=== PATIENT | male | born 1950 | race Caucasian/White ===

== ENCOUNTER → 2016-09-24 | Outpatient (CLI) | payer OTHER | LOC: BHFA 11:15 | PROVIDERS: ATTEND Internal Medicine Interventional Cardiology | DX: I25.10 Atherosclerotic heart disease of native coronary artery without angina pectoris (principal); E78.5 Hyperlipidemia, unspecified ==

== ENCOUNTER 2017-02-14 10:17 | Emergency (ER) | payer OTHER ==
[2017-02-14 10:20] VITALS: RESP 18; TEMP 97.5
--- NOTE | 2017-02-14 10:28 | EDPHY ---
H & P Stated Complaint: 2 hr cp/tightness Time Seen by Provider: 02/14/17 10:22 HPI/ROS: CHIEF COMPLAINT: Chest pressure HISTORY OF PRESENT ILLNESS: The patient presents to the ED after he experienced a mild chest pressure while riding his bike 2 hours ago. The patient went home and rested. His symptoms improved but did not shilpi. The patient denies any complaints of fever, cough or congestion. The patient has no prior history of anginal symptoms. The patient reports his last stress test was unremarkable. He denies any additional acute complaints. Symptoms are currently 07/30. The patient does report a small component of pleuritic chest pain. The patient denies any history of asymmetric calf pain or swelling. The patient did have a recent long plane flight to [place] in January. REVIEW OF SYSTEMS: A comprehensive 10 point review of systems is otherwise negative aside from elements mentioned in the history of present illness. Source: Patient Exam Limitations: No limitations - Personal History Current Tetanus/Diphtheria Vaccine: Yes - Medical/Surgical History Hx Asthma: No Hx Chronic Respiratory Disease: No Hx Diabetes: No Hx Cardiac Disease: Yes Hx Renal Disease: No Hx Cirrhosis: No Hx Alcoholism: No Hx HIV/AIDS: No Hx Splenectomy or Spleen Trauma: No Other PMH: cardiac stents - Social History Smoking Status: Never smoked - Physical Exam Exam: General Appearance: Alert, no distress Eyes: Pupils equal and round no pallor or injection ENT, Mouth: Mucous membranes moist Respiratory: There are no retractions, lungs are clear to auscultation Cardiovascular: Regular rate and rhythm Gastrointestinal: Abdomen is soft and nontender, no masses, bowel sounds normal Neurological: A&O, normal motor function, normal sensory exam, normal cranial nerves Skin: Warm and dry, no rashes Musculoskeletal: Neck is supple nontender Extremities: symmetrical, full range of motion Constitutional: Initial Vital Signs Temperature (C) 36.4 C 02/14/17 10:18 Heart Rate 59 L 02/14/17 10:18 Respiratory Rate 18 02/14/17 10:18 Blood Pressure 125/57 H 02/14/17 10:18 O2 Sat (%) 98 02/14/17 10:18 O2 Delivery Mode Room Air Allergies/Adverse Reactions: No Known Allergies Allergy (Unverified 02/14/17 10:18) Home Medications: Medication Instructions Recorded ARIPIPRAZOLE 02/14/17 Aspirin 81mg (*) 02/14/17 Lisinopril 02/14/17 Metoprolol Succinate 02/14/17 QUEtiapine FUMARATE 02/14/17 Rosuvastatin Calcium 02/14/17 Tamsulosin HCl 02/14/17 Medical Decision Making - Diagnostics EKG Interpretation: EKG: Complete interpretation has been separately recorded in the [facility] archive. Summary impression: Sinus rhythm, mild ST segment elevation noted in the anterolateral leads. I reviewed the patient's prior EKG and is unchanged from that study. Imaging Results: Imaging Impressions Chest X-Ray 02/14/17 11:03 Impression: Suspect airways disease. Chest/Thorax CTA 02/14/17 11:35 Impression: 1. Small volume subsegmental pulmonary emboli to both lower lobes. There is associated small pulmonary infarct suspected left lower lobe laterally at the costophrenic angle. 2. Coronary artery disease noted with stents in place. Findings discussed with Sahil Avila at 12:48 hour, 02/14/2017. ED Course/Re-evaluation: The patient presents to the ED with complaints of mild chest pressure which began while riding his bike. The patient was noted to have some nonspecific changes on his EKG. My initial efforts for focused around obtain a copy of his prior EKG which fortunately demonstrates no dynamic changes. The patient did have a slightly elevated D-dimer. The patient's initial troponin was normal. Patient was taken for CT pulmonary angiogram which demonstrates bilateral subsegmental pulmonary emboli. The patient will be admitted to the hospital for further management can treatment of this condition. Consultation was made with the hospitalist service. The patient will be admitted by Dr. Kramer. The patient remained hemodynamically stable without evidence of arrhythmia or compromise in the emergency department. Differential Diagnosis: Differential diagnosis considered includes pulmonary embolism, acute coronary syndrome, costochondritis, pneumothorax, pneumonia, arrhythmia - Data Points Laboratory Results: Laboratory Results 02/14/17 10:35 02/14/17 10:35 02/14/17 02/14/17 02/14/17 11:04 10:35 10:35 WBC 7.37 10^3/uL 10^3/uL (3.80-9.50) RBC 4.62 10^6/uL 10^6/uL (4.40-6.38) Hgb 13.9 g/dL g/dL (13.7-17.5) Hct 39.7 % L % (40.0-51.0) MCV 85.9 fL fL (81.5-99.8) MCH 30.1 pg pg (27.9-34.1) MCHC 35.0 g/dL g/dL (32.4-36.7) RDW 12.7 % % (11.5-15.2) Plt Count 163 10^3/uL 10^3/uL (150-400) MPV 10.6 fL fL (8.7-11.7) Neut % (Auto) 79.8 % H % (39.3-74.2) Lymph % (Auto) 11.7 % L % (15.0-45.0) [place] % (Auto) 7.3 % % (4.5-13.0) Eos % (Auto) 0.3 % L % (0.6-7.6) Baso % (Auto) 0.5 % % (0.3-1.7) Nucleat RBC Rel Count 0.0 % % (0.0-0.2) Absolute Neuts (auto) 5.88 10^3/uL 10^3/uL (1.70-6.50) Absolute Lymphs (auto) 0.86 10^3/uL L 10^3/uL (1.00-3.00) Absolute Monos (auto) 0.54 10^3/uL 10^3/uL (0.30-0.80) Absolute Eos (auto) 0.02 10^3/uL L 10^3/uL (0.03-0.40) Absolute Basos (auto) 0.04 10^3/uL 10^3/uL (0.02-0.10) Absolute Nucleated RBC 0.00 10^3/uL 10^3/uL (0-0.01) Immature Gran % 0.4 % % (0.0-1.1) Immature Gran # 0.03 10^3/uL 10^3/uL (0.00-0.10) D-Dimer 0.65 ug/mLFEU H ug/mLFEU (0.00-0.50) Sodium 142 mEq/L mEq/L (134-144) Potassium 4.2 mEq/L mEq/L (3.5-5.2) Chloride 105 mEq/L mEq/L (97-110) Carbon Dioxide 23 mEq/l mEq/l (22-31) Anion Gap 14 mEq/L mEq/L (8-16) BUN 16 mg/dL mg/dL (7-23) Creatinine 0.9 mg/dL mg/dL (0.7-1.3) Estimated GFR > 60 Glucose 103 mg/dL H mg/dL (70-100) Calcium 9.1 mg/dL mg/dL (8.5-10.4) Troponin I 0.013 ng/mL ng/mL (0-0.034) Medications Given: Discontinued Medications Aspirin (Aspirin) 324 mg PO EDNOW ONE Stop: 02/14/17 11:04 Last Admin: 02/14/17 11:13 Dose: 324 mg Nitroglycerin (Nitrostat) 0.4 mg SL Q5M PRN PRN Reason: Chest Pain Stop: 02/14/17 11:14 Last Admin: 02/14/17 11:28 Dose: 0.4 mg Departure - Departure Disposition: [facility] Inpatient Acute Clinical Impression: Pulmonary embolism Qualifiers: Pulmonary embolism type: other Chronicity: acute Acute cor pulmonale presence: without acute cor pulmonale Qualified Code(s): I26.99 - Other pulmonary embolism without acute cor pulmonale Condition: Good Referrals: Lilliam Melendez MD [Primary Care Provider] - As per Instructions
--- NOTE | 2017-02-14 10:31 | CPEKG ---
Heart Rate: 61 RR Interval: 984 P-R Interval: 188 QRSD Interval: 90 QT Interval: 400 QTC Interval: 403 P Sperry: 65 QRS Sperry: 22 T Wave Sperry: 32 EKG Severity - BORDERLINE ECG - EKG Impression: SINUS RHYTHM EKG Impression: BORDERLINE ST ELEVATION, ANTEROLATERAL LEADS Electronically Signed By: Sahil Avila 14-Feb-2017 10:58:34
[2017-02-14] MEDS ORDERED: ASPIRIN 81 MG CHEWABLE TAB PO ONE (11:03)
[2017-02-14 11:11] LABS: % IMMATURE GRANULYOCYTES 0.4 % (0.0-1.1); ABSOLUTE IMMATURE GRANULOCYTES 0.03 10^3/uL (0.00-0.10); ADD DIFF? NO; ADD MORPH? NO; ADD SCAN? NO; ATYPICAL LYMPHOCYTE FLAG 10 (0-99); FRAGMENT RBC FLAG 0 (0-99); HEMATOCRIT 39.7 % (40.0-51.0); HEMOGLOBIN 13.9 g/dL (13.7-17.5); LEFT SHIFT FLG 0 (0-99); LIPEMIA HEMOLYSIS FLAG 90 (0-99); MEAN CELL HEMOGLOBIN 30.1 pg (27.9-34.1); MEAN CELL VOLUME 85.9 fL (81.5-99.8); MEAN PLATELET VOLUME 10.6 fL (8.7-11.7); PLATELET CLUMPS FLAG 10 (0-99); PLATELET COUNT 163 10^3/uL (150-400); RED BLOOD CELL COUNT 4.62 10^6/uL (4.40-6.38); RED CELL DISTRIBUTION WIDTH 12.7 % (11.5-15.2)
[2017-02-14] MEDS: NITROGLYCERIN 0.4 MG BTL SL PRN ×3 (11:14→11:28)
[2017-02-14 11:22] LABS: ANION GAP 14 mEq/L (8-16); CALCIUM 9.1 mg/dL (8.5-10.4); CARBON DIOXIDE 23 mEq/l (22-31); CHLORIDE 105 mEq/L (97-110); CREATININE 0.9 mg/dL (0.7-1.3); GLOMERULAR FILTRATION RATE > 60; GLUCOSE 103 mg/dL (70-100); POTASSIUM 4.2 mEq/L (3.5-5.2); SODIUM 142 mEq/L (134-144)
[2017-02-14 11:46] LABS: TROPONIN I 0.013 ng/mL (0-0.034)
--- NOTE | 2017-02-14 12:06 | ECHO ---
[id number] + + [id number] : : [place] [id number] : : [phone] + Adult Echocardiographic Report + -------+ :Name: SAHIL JIMENEZ JStudy Date: 02/14/2017 11:33 AM BP: 123/64 mm Hg : : Hospital Admission Number: [id number] Locat ion: ER: :: 1950 Gender: Male Height: 66 in : :Age: 66 yrs Race: WH Weight: 167 l b : :Reason For Study: chest pain with exercise : : BSA: 1.9 mete rs2 : :History: stents : + -------+ MMode/2D Measurements \T\ Calculations IVSd: 1.2 cm RVDd: 3.4 cm FS: 30.9 % Ao root diam: LVPWd: 0.93 cm LVIDd: 4.3 cm EDV(Teich): 3.3 cm LVIDs: 3.0 cm 83.1 ml ESV(Teich): 34.2 ml EF(Teich): 58.9 % LVLd ap4: 8.3 cm SV(MOD-sp4): EDV(MOD-sp4): 90.0 ml 127.0 ml LVLs ap4: 7.0 cm ESV(MOD-sp4): 37.0 ml EF(MOD-sp4): 70.9 % Normal Measurement Values: + + :LVIDd (3.5-5.7cm) IVSd (0.6-1.1cm) LVPWd (0.6-1.1cm) Aortic Root (2.0-3.7cm)Left Atrium (1.5-4.0cm): :LV Vol(d) (76-115ml) LV Vol(s) (29-48ml) Ejec Fraction (50-65%)PV René (0.6- 1.2m/s) TV René (0.4-1.0m/s) : :MV E René (0.8-1.0m/s)MV A René (0.3-1.0m/s)LVOT René (0.7-1.2m/s) Asc Ao René ( 0.9-1.8m/s) : + + Doppler Measurements \T\ Calculations MV E max rené: Ao V2 max: LV V1 max: PA V2 max: 51.3 cm/sec 132.0 cm/sec 120.0 cm/sec 113.0 cm/sec MV A max rené: Ao max PG: LV V1 max PG: PA max P.4 cm/sec 7.0 mmHg 5.8 mmHg 5.1 mmHg MV E/A: 0.63 MV dec time: 0.44 sec TR max rené: 212.0 cm/sec TR max P.0 mmHg RAP systole: 5.0 mmHg RVSP(TR): 23.0 mmHg Left Ventricle The left ventricle is normal in size and function. There is normal left ventricular wall thickness. Ejection Fraction = 70%. No regional wall motion abnormalities noted. Right Ventricle The right ventricle is normal in size and function. Atria The left atrial size is normal. Right atrial size is normal. Mitral Valve The mitral valve is normal in structure and function. There is no mitral valve stenosis. There is trace to mild mitral regurgitation. Tricuspid Valve The tricuspid valve is normal in structure and function. There is no tricuspid stenosis. There is trace to mild tricuspid regurgitation. Right ventricular systolic pressure is 23mmHg. Aortic Valve The aortic valve is trileaflet. There is no aortic stenosis. There is no aortic insufficiency. Pulmonic Valve The pulmonic valve is normal in structure and function. Trace pulmonic valvular regurgitation. Great Vessels The aortic root is normal size. Pericardium/Pleural There is no pericardial effusion. Conclusion A two-dimensional transthoracic echocardiogram with M-mode and Doppler was performed. The left ventricle is normal in size and function. Ejection Fraction = 70%. No regional variation in LV contractility. Normal appearing valvular structures. There is trace to mild mitral regurgitation. There is trace to mild tricuspid regurgitation. Right ventricular systolic pressure is 23mmHg. Trace pulmonic valvular regurgitation. Final Reading Physician: Cisco Elizabeth signed on 02/14/2017 12:05 PM Ordering Physician: Sahil Avila Performed By: Maryjo Maynard
[2017-02-14] MEDS ORDERED: IOPAMIDOL (ISOVUE 370) 100 ML BTL IV ONE (12:13)
[2017-02-14] MEDS ORDERED: ENOXAPARIN 80 MG/0.8 ML SYR SC ONE (13:04)
[2017-02-14 14:10] VITALS: O2SAT 96
[2017-02-14] MEDS ORDERED: ONDANSETRON 4 MG/2 ML VIAL IVP PRN (14:56)
[2017-02-14] MEDS ORDERED: ACETAMINOPHEN 325 MG TAB PO PRN (14:56)
[2017-02-14] MEDS ORDERED: ONDANSETRON DISINTEGRATING 4 MG TAB PO PRN (14:56)
--- NOTE | 2017-02-14 15:35 | GHP ---
[f rep st] HISTORY AND PHYSICAL DATE OF ADMISSION: 02/14/2017 CHIEF COMPLAINT: Pulmonary embolism. HISTORY OF PRESENT ILLNESS: The patient is a 66-year-old male with history of coronary disease stat us post stents, presenting with right-sided chest pressure while riding his bike 2 hours ago. He sa id it was pressure-like, did not radiate and no associated diaphoresis or radiation. Did have mild shortness of breath. His symptoms improved, but did not shilpi. He denies fevers, chills or cough. He does report having some shortness of breath last week when hiking [employer]. Denies any lowe r extremity edema or pain. The chest pressure does worsen with deep inspiration. He did travel rec ently to [place] in late December. REVIEW OF SYSTEMS: I completed a 10-point review of systems, negative except as noted in HPI. PAST MEDICAL HISTORY: Coronary artery disease status post stents. PAST SURGICAL HISTORY: None. FAMILY HISTORY: Father with coronary artery disease. SOCIAL HISTORY: No tobacco or illicits. Lives in [place]. He is very active and exercises and bik es. MEDICATIONS: See home medication reconciliation. ALLERGIES: None. PHYSICAL EXAMINATION: VITAL SIGNS: Temperature 36.4, blood pressure 135/57, heart rate in the 50s, respirations 18, 98% on room air. GENERAL: Well-appearing male sitting up in bed, no acute distre ss. HEENT: PERRLA. EOMI. Oropharynx clear. CV: Regular rate and rhythm. No murmurs, gallops, or rubs. LUNGS: Clear to auscultation bilaterally. ABDOMEN: Soft, nontender, nondistended. Posi tive bowel sounds. : No suprapubic tenderness. MUSCULOSKELETAL: 5/5 upper and lower extremity strength. No lower extremity swelling or pain over the calves. NEURO: 2 through 12 intact. PSYCH : Alert and oriented x3. LABORATORY DATA: D-dimer 0.65, sodium 142, potassium 4.2, chloride 105, carbon dioxide 23, creatini ne 0.9 glucose 103, calcium 9.1. Troponin 0.013. WBC 7.3, hemoglobin 13, hematocrit 39, platelets 167. IMAGIN. Chest x-ray, personally reviewed by me: Airway disease. 2. CTA: Small volume subsegmental pulmonary emboli to both lower lobes. There is associated small pulmonary infarct in the left lower lobe at the costophrenic angle. Coronary artery disease noted with stents in place. 3. EKG, personally reviewed by me: Normal sinus rhythm. LVH. 4. Echocardiogram: Normal LV function with an EF of 70%. Normal-appearing valves. There is mild MR and trace TR with RVSP 23 mmHg. HOSPITAL COURSE BY PROBLEM: 1. Acute pulmonary embolism: Suspect provoked with recent long plane ride. He is hemodynamically stable, not requiring oxygen, with good blood pressure. Echocardiogram was negative for right heart strain. Negative troponin. Will evaluate with lower extremity Dopplers. Patient and I had a long discussion about anticoagulation options and he has opted for Coumadin, thus will require bridge fo r at least 7 days until INR is 2. 2. Atypical chest pain secondary to pleurisy with PE. Recommend NSAIDs. 3. Diet regular. 4. Deep venous thrombosis prophylaxis on Lovenox and Coumadin. DISPOSITION: Patient warrants observation admission, given acute PE, requiring telemetry and ultras ound of lower extremities. /[id number]/MODL
[2017-02-14 16:28] LABS: INR 0.99 (0.83-1.16)
[2017-02-14 16:29] LABS: APTT 26.8 SEC (23.0-38.0)
[2017-02-14] MEDS ORDERED: WARFARIN SODIUM 5 MG TAB ONE (16:39)
[2017-02-14 17:00] VITALS: BP 129/70; PULSE 50
--- NOTE | 2017-02-14 17:20 | GDS ---
[f rep st] DISCHARGE SUMMARY CHIEF COMPLAINT: Pulmonary embolism. HISTORY OF PRESENTING ILLNESS: Please see H and P dated today for full HPI. HOSPITAL COURSE BY PROBLEM: 1. Acute subsegmental PE: Suspect provoked in the setting of recent long travel. He is hemodynamically stable. Negative echocardiogram as well as lower extremity DVTs. His PESI score is 76, which is low risk for mortality, morbidity. The patient opted to be treated with Coumadin, thus discharge on a Lovenox bridge.Follow up with his PCP on Friday for an INR. I explained at length the risk of anticoagulation and strict return precautions including chest pain, shortness of breath, dizziness or lightheadedness. Did offer the patient for observation stay overnight but he declined. He understands the risks, including hypotension, dizziness, . 2. Atypical chest pain secondary to pleurisy. NSAIDs p.r.n. DISPOSITION: Patient is stable for discharge. NEW MEDICATIONS: Lovenox and Coumadin. FOLLOWUP: 1. Dr. Lilliam Melendez, his PCP. 2. INR Friday. /[id number]/MODL MTDD
[2017-02-14] MEDS ORDERED: TAMSULOSIN HCL 0.4 MG CAP PO SCH (21:00)
[2017-02-14] MEDS ORDERED: QUEtiapine FUMARATE 25 MG TAB PO SCH (21:00)
[2017-02-14] MEDS ORDERED: METOPROLOL SUCCINATE XR 25 MG TAB PO SCH (21:00)
[2017-02-14] MEDS ORDERED: ATORVASTATIN CALCIUM 20 MG TAB PO SCH (21:00)
[2017-02-14] MEDS ORDERED: ARIPiprazole 2 MG TAB PO SCH (21:00)
[2017-02-14] MEDS ORDERED: ASPIRIN 81 MG CHEWABLE TAB PO SCH (21:00)
[2017-02-14] MEDS ORDERED: LISINOPRIL 5 MG TAB PO SCH (21:00)
== END 2017-02-14 17:33 | disposition home or self-care (01) ==
LOC: UNDOADMIN 13:13
DX: I26.99 Other pulmonary embolism without acute cor pulmonale (principal)
CPT/HCPCS: J1650; Q9967

== ENCOUNTER 2017-11-09 06:18 | Observation (INO) | payer OTHER ==
[2017-11-09] MEDS ORDERED: ASPIRIN 81 MG CHEWABLE TAB ONE (06:36)
--- NOTE | 2017-11-09 06:36 | CPEKG ---
Heart Rate: 50 RR Interval: 1200 P-R Interval: 192 QRSD Interval: 96 QT Interval: 452 QTC Interval: 413 P Galax: 69 QRS Galax: 37 T Wave Galax: 39 EKG Severity - BORDERLINE ECG - EKG Impression: SINUS RHYTHM EKG Impression: BORDERLINE ST ELEVATION, ANTERIOR LEADS EKG Impression: TALL T, CONSIDER METABOLIC/ISCHEMIC ABNRM Electronically Signed By: Charbel Tracy 09-Nov-2017 06:44:30
[2017-11-09] MEDS ORDERED: ASPIRIN 81 MG CHEWABLE TAB PO ONE (06:38)
--- NOTE | 2017-11-09 06:44 | EDPHY ---
H & P Stated Complaint: mid chest pain that started yesterday - Personal History Current Tetanus/Diphtheria Vaccine: Yes Current Tetanus Diphtheria and Acellular Pertussis (TDAP): Yes - Medical/Surgical History Hx Asthma: No Hx Chronic Respiratory Disease: No Hx Diabetes: No Hx Cardiac Disease: Yes Hx Renal Disease: No Hx Cirrhosis: No Hx Alcoholism: No Hx HIV/AIDS: No Hx Splenectomy or Spleen Trauma: No Other PMH: cardiac stents - Social History Smoking Status: Never smoked Time Seen by Provider: 11/09/17 06:29 HPI/ROS: Chief Complaint: Chest pain HPI: 67-year-old male with a history of coronary artery disease status post stenting in the past. He is a patient Dr. Shaw. He also has a history of a PE last January which was precipitated by a long international plane flight. He completed a course of anticoagulation. He is presenting today with waxing and waning substernal chest pain since yesterday. At worst is a 3/10. It is gone away when he went to bed but he woke at 3 o'clock this morning with this substernal pain. Is not radiating. Is described as a tightness. There are no aggravating or alleviating factors. Is not pleuritic. It does not feel like his prior PEs. No recent periods of immobility. No leg pain or swelling. No shortness of breath. ROS: 10 point Review of Systems is negative except as noted in the HPI. PMH: Coronary artery disease, PE, hyperlipidemia, BPH Social History: No smoking, no alcohol, no recreational drug use Family History: non-contributory Physical Exam: Gen: Awake, Alert, No Distress HEENT: Nose: no rhinorrhea Eyes: PERRLA, EOMI Mouth: Moist mucosa Neck: Supple, no JVD Chest: nontender, lungs clear to auscultation Heart: S1, S2 normal, no murmur Abd: Soft, non-tender, no guarding Back: no CVA tenderness, no midline tenderness Ext: no edema, non-tender Skin: no rash Neuro: CN II-XII intact, Sensation grossly intact, Strength 5/5 in bilateral upper and lower extremities (Charbel Tracy) Constitutional: Initial Vital Signs Temperature (C) 36.3 C 11/09/17 06:21 Heart Rate 50 L 04/22/18 06:21 Respiratory Rate 16 11/09/17 06:21 Blood Pressure 118/36 L 11/09/17 06:21 O2 Sat (%) 96 11/09/17 06:21 O2 Delivery Mode Room Air Allergies/Adverse Reactions: No Known Allergies Allergy (Verified 11/09/17 06:25) Home Medications: Medication Instructions Recorded Lisinopril [Zestril 5 mg (*)] 5 mg PO HS 02/14/17 Metoprolol Succinate Xr [Toprol Xl 25 mg PO HS 02/14/17 25 mg (*)] QUEtiapine FUMARATE [Seroquel 25 25 mg PO HS 02/14/17 mg (*)] Tamsulosin HCl [Flomax 0.4 MG (*)] 0.4 mg PO HS 02/14/17 Medical Decision Making - Diagnostics EKG Interpretation: ECG time 6:34 a.m., sinus rhythm with a rate of 50, normal axis, normal intervals, there is borderline ST elevation in the anterior leads concerning for ischemia, however these are unchanged compared to an ECG from the 14 February 2017. (Charbel Tracy) ED Course/Re-evaluation: 67-year-old male with a history of coronary disease and PE in the past is presenting with moderate waxing waning substernal chest pain since yesterday afternoon. ECG is unchanged from prior. Will send troponin, D-dimer, chest x- ray. He has received aspirin in the emergency department. [address] Medrano pending patient's laboratory results and chest x-ray result. (Charbel Tracy) This patient was turned over to me at shift change. After his laboratory studies returned I had a long discussion with the patient and his . His D- dimer is negative. This gives him a 96% negative predictive value. Additionally, his pain is dull and not sharp, it is not pleuritic, he is not tachypneic and he is not tachycardic. His prior pulmonary embolus was also provoked. He does not require angio of his chest. However, this patient had a stent placed approximately 2007 after a very high calcium score and some exercise intolerance. He never had any claudia chest pain. He seen Dr. Shaw on a yearly basis since 2007 however he denies ever having a new study, a regular treadmill, or repeat calcium score. I do not have a good sense of whether not his disease has progressed or not. Additionally, he has had intermittent chest pressure throughout the night and yesterday while at rest. I am admitting this patient hospital for further rule out and provocative testing. Dr. Rodriguez accepts (Kali Medrano) - Data Points Laboratory Results: Laboratory Results 11/09/17 06:35 11/09/17 06:35 11/09/17 11/09/17 11/09/17 06:35 06:35 06:35 WBC 4.71 10^3/uL 10^3/uL (3.80-9.50) RBC 4.81 10^6/uL 10^6/uL (4.40-6.38) Hgb 14.4 g/dL g/dL (13.7-17.5) Hct 42.6 % % (40.0-51.0) MCV 88.6 fL fL (81.5-99.8) MCH 29.9 pg pg (27.9-34.1) MCHC 33.8 g/dL g/dL (32.4-36.7) RDW 12.9 % % (11.5-15.2) Plt Count 143 10^3/uL L 10^3/uL (150-400) MPV 10.3 fL fL (8.7-11.7) Neut % (Auto) 44.1 % % (39.3-74.2) Lymph % (Auto) 40.1 % % (15.0-45.0) [place] % (Auto) 11.7 % % (4.5-13.0) Eos % (Auto) 2.8 % % (0.6-7.6) Baso % (Auto) 1.3 % % (0.3-1.7) Nucleat RBC Rel Count 0.0 % % (0.0-0.2) Absolute Neuts (auto) 2.08 10^3/uL 10^3/uL (1.70-6.50) Absolute Lymphs (auto) 1.89 10^3/uL 10^3/uL (1.00-3.00) Absolute Monos (auto) 0.55 10^3/uL 10^3/uL (0.30-0.80) Absolute Eos (auto) 0.13 10^3/uL 10^3/uL (0.03-0.40) Absolute Basos (auto) 0.06 10^3/uL 10^3/uL (0.02-0.10) Absolute Nucleated RBC 0.00 10^3/uL 10^3/uL (0-0.01) Immature Gran % 0.0 % % (0.0-1.1) Immature Gran # 0.00 10^3/uL 10^3/uL (0.00-0.10) D-Dimer 0.37 ug/mLFEU ug/mLFEU (0.00-0.50) Sodium 144 mEq/L mEq/L (135-145) Potassium 4.2 mEq/L mEq/L (3.5-5.2) Chloride 107 mEq/L mEq/L (97-110) Carbon Dioxide 24 mEq/l mEq/l (22-31) Anion Gap 13 mEq/L mEq/L (8-16) BUN 18 mg/dL mg/dL (7-23) Creatinine 0.7 mg/dL mg/dL (0.7-1.3) Estimated GFR > 60 Glucose 91 mg/dL mg/dL (70-100) Calcium 8.6 mg/dL mg/dL (8.5-10.4) Troponin I < 0.012 ng/mL ng/mL (0.000-0.034) Medications Given: Discontinued Medications Aspirin (Aspirin) 324 mg PO EDNOW ONE Stop: 11/09/17 06:39 Last Admin: 18 06:39 Dose: 324 mg Departure - Departure Disposition: [facility] Inpatient Acute Clinical Impression: Acute coronary syndrome Condition: Fair Referrals: Lilliam Melendez MD [Primary Care Provider] - As per Instructions
[2017-11-09 06:45] LABS: PLATELET COUNT 143 10^3/uL (150-400)
[2017-11-09] MEDS ORDERED: ONDANSETRON 4 MG/2 ML VIAL IVP PRN (08:23)
[2017-11-09] MEDS ORDERED: ACETAMINOPHEN 325 MG TAB PO PRN (08:23)
[2017-11-09] MEDS ORDERED: ONDANSETRON DISINTEGRATING 4 MG TAB PO PRN (08:23)
[2017-11-09] MEDS ORDERED: ENOXAPARIN 40 MG/0.4 ML SYR SC SCH (09:00)
--- NOTE | 2017-11-09 10:52 | GHP ---
[f rep st] HISTORY AND PHYSICAL DATE OF ADMISSION: 11/09/2017 CHIEF COMPLAINT: Chest pressure. PRIMARY INFORMATION ASSURANCE MANAGER: Dr. Shaw. HISTORY OF PRESENT ILLNESS: A 67-year-old male with history of subsegmental PE in January 2017, coronary artery disease with stent 2007 and hyperlipidemia, presenting with chest pressure. He was sitting at work yesterday, greeting people and noticed some substernal chest pressure without associated symptoms, including shortness of breath, nausea, vomiting, diaphoresis or radiation. He did not pay much attention to it, so cannot provide how long it lasted. He went on through his day without any issues, went to bed and awoke this morning at 3 o'clock with a similar pressure. It is now resolved. Denies any lower extremity edema, PND, or pillow orthopnea. He is an avid custodial supervisor; ran 5 miles at 8-minute pace without any chest pain or shortness of breath. Also, biked 17 miles on without any symptoms. No fevers, chills, or sweats. No cough. Patient was asymptomatic prior to his previous stenting. Cath was based on a high calcium score on CT. REVIEW OF SYSTEMS: I completed a 10-point review of systems. Negative except as noted in HPI. PAST MEDICAL HISTORY: 1. Subsegmental PE 02/03, completed 6 months of Coumadin. 2. Coronary artery disease, stent 2007. 3. Hyperlipidemia. 4. Depression. 5. Echocardiogram 02/03: EF 70%, RVSP is 23 mmHg. FAMILY HISTORY: Maternal grandfather with a heart attack in his 60s. SOCIAL HISTORY: Lives in [place], is , has 2 kids. Smoked 5 years, tobacco in his 20s. No alcohol or illicits. PAST SURGICAL HISTORY: Cardiac stent. HOME MEDICATIONS: Toprol 25 mg q.h.s., Zestril 5 mg q.h.s., Seroquel 25 q.h.s. , Crestor 20, Flomax 0.4 mg. ALLERGIES: None. PHYSICAL EXAMINATION: VITAL SIGNS: Temperature 36.2, blood pressure 128/73, heart rate is in the 40s to 50s, respirations 16, 98% on room air. GENERAL: Well-appearing male sitting up in bed, no acute distress, smiling. HEENT: PERRLA. EOMI. Oropharynx clear. CV: Bradycardic, regular. No murmurs, gallops, or rubs. No lower extremity edema. LUNGS: Clear. No crackles or wheezing. GI: Soft, nontender, nondistended. Positive bowel sounds. : No Yang. MUSCULOSKELETAL: 5/5 upper and lower extremity strength. NEUROLOGIC: 2 through 12 intact. PSYCH: Alert and oriented x3. LABORATORY DATA: WBC 4, hemoglobin 14, hematocrit 42, platelets 143. D-dimer 0.37. Sodium 144, potassium 4.2, chloride 107, carbon dioxide 24, creatinine 0.7, glucose 91, calcium 8.6. Troponin less than 0.012. Chest x-ray personally reviewed by me, hyperexpanded, no effusion or opacity. EKG: Normal sinus rhythm, bradycardic, ST-elevation anterior leads. ASSESSMENT/PLAN: 1. Atypical chest pressure: Differential includes acute coronary syndrome, pulmonary embolism, gastroesophageal reflux disease, musculoskeletal. Dimer is negative. The initial troponin negative. EKG shows ST elevation anterior leads , similar to prior, 2017. We will repeat troponin. I am not inclined to check a cardiac stress at this time as patient is asymptomatic with strenuous exercise. He can follow up with Dr. Shaw as an outpatient. 2. Hyperlipidemia: Continue statin. 3. History of pulmonary embolism: Completed 6 months of Coumadin. 4. Diet: Regular. 5. DVT prophylaxis, ambulatory. DISPOSITION: Patient warrants observation admission given chest pressure warranting telemetry and serial troponin. /[id number]/MODL MTDD
[2017-11-09 13:21] VITALS: BP 112/63
--- NOTE | 2017-11-09 14:24 | GDS ---
[f rep st] DISCHARGE SUMMARY DISCHARGE DIAGNOSES: 1. Chest pressure. 2. History of coronary artery disease with stent 2007. 3. Hyperlipidemia. 4. History of pulmonary embolus January 2017. 5. History of depression. HISTORY OF PRESENT ILLNESS: A 67-year-old male with history of subsegmental PE status post 6 months of Coumadin, coronary artery disease with stent in 2007, presenting with chest pressure. Please see my full H and P dated today for assessment and plan. HOSPITAL COURSE: Atypical chest pressure. Differential included musculoskeletal, GERD, ACS versus P E. He had a negative D-dimer. Troponins were negative x2. EKG showed ST elevations anteriorly that appears to be more J-point elevation and similar to a prior in 2017. Given the fact that he does in tense exercise without symptoms, including a 5 mile run yesterday and 17 miles on a bike wit hout any symptoms, I do not think a cardiac stress test is warranted as an inpatient. If he has recu rrent symptoms, he may follow up with his primary project buyer, Dr. Shaw. He is currently hemody namically stable. I spoke extensively with patient about return precautions and he is comfortable wi th this plan. Hyperlipidemia. Statin. History of PE. Completed 6 months Coumadin. DISPOSITION: Patient is stable for discharge. NEW MEDICATIONS: None. FOLLOW UP: 1. PCP. 2. Dr. Shaw as previously scheduled. /[id number]/MODL
== END 2017-11-09 15:26 | disposition home or self-care (01) ==
LOC: F2W 08:30
PROVIDERS: ADMIT Internal Medicine; ATTEND Internal Medicine
DX: R07.9 Chest pain, unspecified (principal); I25.10 Atherosclerotic heart disease of native coronary artery without angina pectoris; E78.5 Hyperlipidemia, unspecified; F32.9 Major depressive disorder, single episode, unspecified; N40.0 Benign prostatic hyperplasia without lower urinary tract symptoms; Z86.711 Personal history of pulmonary embolism; Z87.891 Personal history of nicotine dependence; Z95.5 Presence of coronary angioplasty implant and graft
CPT/HCPCS: 71046; 93005; G0378; J1650

== ENCOUNTER → 2018-07-16 | Outpatient (CLI) | payer OTHER | LOC: FIMAGING 19:11 | PROVIDERS: ATTEND Orthopaedic Surgery | DX: M22.41 Chondromalacia patellae, right knee (principal); M25.461 Effusion, right knee; M76.31 Iliotibial band syndrome, right leg ==